=== PATIENT | female | born 1980 | race Hispanic/Latino ===

== ENCOUNTER → 2023-09-24 | Outpatient (CLI) | payer BC | END | disposition home or self-care (01) | LOC: SHCH 08:04 | PROVIDERS: ATTEND Internal Medicine Cardiovascular Disease | DX: I70.1 Atherosclerosis of renal artery (principal); I10 Essential (primary) hypertension | CPT/HCPCS: 93975 ==

== ENCOUNTER → 2023-12-07 | Outpatient (CLI) | payer BC ==
[~2023-12-07] MED LIST: IOHEXOL-350 75 ML VIAL IV ONE
== END | disposition home or self-care (01) ==
LOC: RAH 09:49
PROVIDERS: ATTEND Internal Medicine Cardiovascular Disease
DX: I72.2 Aneurysm of renal artery (principal); K76.0 Fatty (change of) liver, not elsewhere classified; R16.0 Hepatomegaly, not elsewhere classified; I10 Essential (primary) hypertension
CPT/HCPCS: 74174; Q9967

== ENCOUNTER → 2025-01-18 | Outpatient (CLI) | payer BC ==
[~2025-01-18] MED LIST changes: +IOHEXOL 350 MG/ML 100ML INFUS..BTL IV ONE; -IOHEXOL-350 75 ML VIAL IV ONE
--- NOTE | 2025-01-18 23:20 | HMCIMG ---
Name of the exam: CT ANGIOGRAPHY ABDOMEN AND PELVIS WITHOUT AND WITH INTRAVENOUS CONTRAST Technique: Helical computed tomography angiography of the abdomen and pelvis was performed before and after intravenous contrast, including arterial phase and a 7-minute renal delay, with multiplanar reconstructions. Dose metrics: CTDIvol 119.0 mGy; DLP 3,867.30 mGy???cm. Comparison: No prior examinations are available for comparison. Contrast: Standard dose of intravenous contrast administered. Findings: Lung bases: No pleural effusion, lobar collapse, or consolidation in the imaged lung bases; mild dependent atelectasis. Liver: Enlarged measuring approximately 18 cm; hepatic steatosis; smooth contour; no focal hepatic lesion detected; no intrahepatic biliary dilatation. Portal vein and hepatic veins are normal in caliber. Gallbladder and biliary tree: Gallbladder with normal wall thickness and smooth margins; no gallstones or pericholecystic inflammatory change; common bile duct not dilated. Pancreas: Normal size and attenuation without ductal dilatation or peripancreatic inflammation. Spleen: Normal size, morphology, and attenuation; no focal lesion. Adrenals: Normal morphology bilaterally. Kidneys and ureters: Normal size, shape, position, and enhancement; no renal mass, calculus, or hydronephrosis; prompt excretion bilaterally on delayed images. Gastrointestinal tract and peritoneum: Stomach, duodenum, jejunum, and ileum without abnormal wall thickening or obstruction. Appendix not inflamed. Colon contains fecal material without obstructive pattern. No free intraperitoneal fluid or air. Omentum and mesentery appear normal. Lymph nodes: No pathologically enlarged abdominal or pelvic lymph nodes. Retroperitoneum and vasculature: Abdominal aorta and inferior vena cava in normal position and caliber. No aneurysm or dissection. (No specific renal artery stenosis measurements were provided in the source data.) Pelvis: Urinary bladder with normal wall thickness and contour. Uterus described as normal for age. Musculoskeletal and soft tissues: No acute osseous abnormality; visualized extra-abdominal and paraspinal soft tissues are unremarkable. Impression: * Hepatomegaly (approximately 18 cm) with hepatic steatosis; no focal hepatic lesion or biliary dilatation. Recommendation: Correlate with liver function tests and metabolic risk factors; consider ultrasound or elastography if clinical concern for steatohepatitis or fibrosis staging. * Kidneys enhance and excrete contrast normally without hydronephrosis, nephrolithiasis, or renal mass. Recommendation: If clinical suspicion for renal artery stenosis remains (history of renovascular hypertension or refractory kidney dysfunction), ensure review of dedicated arterial-phase reconstructions with quantitative stenosis assessment or consider targeted duplex ultrasound for functional correlation. * No acute inflammatory process in the abdomen or pelvis; no bowel obstruction or appendicitis; no ascites; no pathologic lymphadenopathy. * Abdominal aorta normal in caliber without aneurysm or dissection. * Mild dependent atelectasis at the lung bases without consolidation. /Karlie
== END | disposition home or self-care (01) ==
LOC: RAH 10:26
PROVIDERS: ATTEND Internal Medicine Cardiovascular Disease
DX: I71.40 Abdominal aortic aneurysm, without rupture, unspecified (principal); K76.0 Fatty (change of) liver, not elsewhere classified; J98.11 Atelectasis; I70.1 Atherosclerosis of renal artery
CPT/HCPCS: 74174; Q9967